=== PATIENT | male | born 1995 | race Caucasian/White ===

== ENCOUNTER 2024-08-21 10:59 | Emergency (ER) | payer BC, SELFPAY ==
[2024-08-21] VITALS (7 sets, daily range): BP systolic 132–183; BP diastolic 80–105; PULSE 87–125; RESP 15–19; TEMP 36.4–36.9; O2SAT 96–100
--- NOTE | ~2024-08-21 | XR_ITS ---
EXAMINATION: XR chest 1V portable DATE: 08/21/2024 12:59 INDICATION: Anxiety TECHNIQUE: frontal view of the chest was obtained. COMPARISON: None FINDINGS: The lungs are clear with no focal airspace opacities, pulmonary edema, pleural effusion or pneumothor ax. The cardiomediastinal silhouette is normal. Visualized bones and soft tissues are unremarkable. IMPRESSION: 1. No acute cardiopulmonary disease. Reviewed, dictated and finalized at location A.
--- NOTE | 2024-08-21 12:20 | ECG_ITS ---
Test Date: 2024-08-21 12:36:34 Measurements Intervals [place] Rate: 98 P: 66 MD: 132 QRS: 56 QRSD: 101 T: -1 QT: 342 QTc: 437 Interpretive Statements SINUS RHYTHM WITH SINUS ARRHYTHMIA BORDERLINE ST-T WAVE ABNORMALITY- INFERIOR LEADS BASELINE ARTIFACT- I, II, AVR, V1 BORDERLINE ECG No previous ECG available for comparison Electronically Signed On 08-21-2024 12:50:56 CDT by Jasper Zelaya D.O.
--- NOTE | 2024-08-21 12:20 | ED_ITS ---
HPI - Psych General Chief Complaint: Psychiatric Symptoms Stated Complaint: multiple complaints Time Seen by Provider: 08/21/24 12:11 Source: patient Mode of arrival: ambulatory Limitations: no limitations History of Present Illness HPI Narrative: 29 years old white male drove himself to the emergency room complaining of noticing blood in the urine for the last 2 weeks. History of hematuria for years, patient reports some left-sided neck tenderness like throbbing pain only when he tried to go sleep. Patient also notice some spot at the left forearm slightly tender, he suspects pink possible fracture although he does not have any recent trauma. Patient is telling me that he was suicidal thought last night but no specific plan. Used to be on psych medications for years, has been of it since the COVID pandemic. Currently patient does not take any medicine at home. He denies any homicidal ideation. Related Data Allergies Allergy/AdvReac Type Severity Reaction Status Date / Time No Known Allergies Allergy Verified 08/21/24 11:22 Review of Systems 2 Review of Systems: All systems reviewed & are unremarkable except as noted in HPI and below Exam 2 Narrative: General appearance: Well-developed, well-nourished Skin: Normal color Head: Normocephalic, nontraumatic Eyes: Clear conjunctiva ENT: Oropharynx normal, ears normal, nose normal Neck: Supple, nontender Chest and respiratory: Airway patent, no respiratory distress, no accessory muscle use Heart: Regular rate/rhythm Abdomen: Soft, nontender, no organomegaly, quiet bowel sounds Vascular: Normal peripheral pulses, normal capillary refill. Musculoskeletal: Normal range of motion, nontender back Neurologic: Alert and oriented ?3, PROOF READER is normal as tested, no gross motor deficit Course Vital Signs Vital signs: Vital Signs Temperature 36.6 C 08/21/24 11:19 Pulse Rate 118 H 08/21/24 11:19 Respiratory Rate 16 08/21/24 11:19 Blood Pressure 180/105 H 08/21/24 11:19 Pulse Oximetry 97 08/21/24 11:19 Oxygen Delivery Room Air 08/21/24 11:19 Temperature 36.4 C 08/21/24 19:41 Pulse Rate 96 08/21/24 19:41 Respiratory Rate 18 08/21/24 19:41 Blood Pressure 175/92 H 08/21/24 19:41 Pulse Oximetry 100 08/21/24 19:41 Oxygen Delivery Room Air 08/21/24 11:19 MDM - Psych MDM Narrative Medical decision making narrative: Patient presents with multiple symptoms not related to each other and suicidal thought Vital signs showing blood pressure 180/105, heart rate 118 otherwise within normal limit Physical examination is unremarkable except for odd personality patient Differential diagnosis include major depression with suicidal ideation, urinary tract infection, electrolyte imbalance, dehydration, thyroid abnormality Blood workup today includes CBC, CMP, TSH showed AST 283, ALT 244, ALKALINE PHOSPHATASE 182 PATIENT IS ALCOHOLIC Urinalysis showed EVIDENCE OF INFECTION Urine drug screen showed NEGATIVE FOR DRUGS Chest x-ray showed NO ACUTE ABNORMALITY EKG showed NORMAL SINUS RHYTHM DIAGNOSIS MAJOR DEPRESSION WITH SUICIDAL IDEATION, URINARY TRACT INFECTION, UNCONTROLLED HYPERTENSION, ALCOHOLIC HEPATITIS PATIENT WAS SIGNED OUT TO DR. TRENT WAITING FOR PSYCH EVAL Differential Diagnosis Differential diagnosis: Likely other (As above) Medical Records Attestation: I reviewed the patient's medical records. Lab Data Attestation: I reviewed the patient's lab results. 08/21/24 12:15 08/21/24 12:15 Labs: Lab Results 08/21/24 08/21/24 08/21/24 Range/Units 12:14 12:15 12:31 WBC 7.8 (4.5-10.0) K/mm3 RBC 4.42 L (4.6-6.20) M/mm3 Hgb 15.6 (14.0-18.0) g/dL Hct 45.5 (42.0-52.0) % MCV 102.9 H (80-100) fl MCH 35.3 H (26-34) pg MCHC 34.3 (32-36) g/dl RDW 14.1 (11.5-14.5) % Plt Count 195 (150-375) k/mm3 MPV 10.7 H (7.4-10.4) fl Immature Gran % (Auto) 0.6 H (0-0.5) % Neut % (Auto) 77.0 H (45.5-73.1) % Lymph % (Auto) 12.1 L (18.3-44.2) % Rush % (Auto) 9.0 H (2.6-8.5) % Eos % (Auto) 0.3 (0-4.4) % Baso % (Auto) 1.0 (0.2-1.2) % Lymph # (Auto) 0.94 (0.9-3.2) K/mm3 Rush # (Auto) 0.7 H (0.1-0.6) K/mm3 Eos # (Auto) 0.0 (0-0.3) K/mm3 Baso # (Auto) 0.1 (0.0-0.1) K/mm3 Abs Immat Gran (auto) 0.05 H (0.00-0.031) K/mm3 Absolute Neuts (auto) 6.0 (1.3-6.7) K/mm3 Absolute Nucleated RBC 0.000 (0.0-0.012) K/mm3 Nucleated RBC % 0.0 (0.0-0.2) % Sodium 142 (137-145) mmol/L Potassium 4.1 (3.4-5.0) mmol/L Chloride 102 (98-107) mmol/L Carbon Dioxide 24 (22-30) mmol/L Anion Gap 16 H (4-12) mmol/L BUN 7 L (9-20) mg/dL Creatinine 0.77 (0.7-1.3) mg/dL Estim Creat Clear Calc 156 ml/min Estimated GFR > 60 (59 - ) Glucose 93 (65-110) mg/dL Calcium 9.0 (8.4-10.2) mg/dL Magnesium 1.6 (1.6-2.3) mg/dL Total Bilirubin 1.0 (0.2-1.3) mg/dL AST 283 H (17-59) U/L ALT 244 H (6-50) U/L Alkaline Phosphatase 182 H (38-126) U/L Total Protein 8.0 (6.3-8.2) g/dL Albumin 4.7 (3.5-5.1) g/dL Lipase 28 (23-300) U/L TSH (Reflex) 2.060 (0.465-4.68) uIU/mL Urine Color Dark yellow (Yellow) Urine Appearance Cloudy H (Clear) Urine pH 5.5 (5.0-9.0) Ur Specific [place] 1.019 (1.001-1.035) Urine Protein 1+ H (Negative) mg/dL Urine Glucose (UA) Negative (Negative) mg/dL Urine Ketones 1+ H (Negative) mg/dL Ur Blood (Man) Negative (Negative) Urine Nitrate Negative (Negative) Urine Bilirubin Negative (Negative) Urine Urobilinogen 1.0 (<2.0) mg/dL Leukocyte Esterase Rfl 2+ H (Negative) LESLIE/UL Urine RBC 0-2 (0-2) /hpf Urine WBC >100 H (0-3) /hpf Ur Squamous Epith Cells Occasional (Few) /hpf Urine Bacteria Rare /hpf Urine Casts 3-5 Urine Opiates Screen Negative (Negative) Urine Methadone Screen Negative (Negative) Ur Barbiturates Screen Negative (Negative) Ur Phencyclidine Scrn Negative (Negative) Ur Amphetamine Screen Negative (Negative) U Benzodiazepines Scrn Negative (Negative) Urine Cocaine Screen Negative (Negative) U Cannabinoids Screen Negative (Negative) Ethyl Alcohol 61 (<10) mg/dL SARS-CoV-2 RNA (RT-PCR) Negative (Negative) Imaging Data Radiologist's impression: Impressions Chest X-Ray 08/21/24 13:02 IMPRESSION: 1. No acute cardiopulmonary disease. ECG Data EKG #1: Attestation: I personally reviewed and interpreted this ECG as follows: ECG completion date: 08/21/24 Interpretation: NORMAL SINUS RHYTHM WITH SINUS ARRHYTHMIA AT 98 BEATS PER MINUTE, BORDERLINE ST T-WAVE ABNORMALITY, BORDERLINE EKG, NO PREVIOUS EKG AVAILABLE FOR COMPARISON Critical Care Time Critical Care Time Critical Care Time: No Discharge Plan Discharge Clinical Impression: Depression with suicidal ideation, Urinary tract infection, Hypertension, Alcoholic hepatitis Patient Disposition: Psychiatric Hosp Condition: Stable Patient Language: [place] Citizen Follow-up/Referrals: PHYSICIAN,ASSEMBLER PRODUCTION LINE [Non-Staff] -
[2024-08-21 12:30] LABS: Basophils Absolute Auto 0.1 K/mm3 (0.0-0.1); Eosinophils Percent Auto 0.3 % (0-4.4); Hematocrit 45.5 % (42.0-52.0); Hemoglobin 15.6 g/dL (14.0-18.0); Immature Granulocyte Absolute 0.05 K/mm3 (0.00-0.031); Immature Granulocyte Percent A 0.6 % (0-0.5); Lymphocytes Absolute Auto 0.94 K/mm3 (0.9-3.2); Lymphocytes Percent Auto 12.1 % (18.3-44.2); Mean Corpuscular HGB Conc 34.3 g/dl (32-36); Mean Corpuscular Hemoglobin 35.3 pg (26-34); Mean Corpuscular Volume 102.9 fl (80-100); Mean Platelet Volume 10.7 fl (7.4-10.4); Monocytes Absolute Auto 0.7 K/mm3 (0.1-0.6); Platelet Count Result 195 k/mm3 (150-375); Red Blood Count 4.42 M/mm3 (4.6-6.20); Red Cell Distribution Width 14.1 % (11.5-14.5); White Blood Count 7.8 K/mm3 (4.5-10.0)
[2024-08-21 12:40] LABS: Alanine Aminotransferase 244 U/L (6-50); Albumin Level 4.7 g/dL (3.5-5.1); Alkaline Phosphatase 182 U/L (38-126); Anion Gap 16 mmol/L (4-12); Aspartate Amino Transferase 283 U/L (17-59); Blood Urea Nitrogen 7 mg/dL (9-20); Carbon Dioxide 24 mmol/L (22-30); Chloride 102 mmol/L (98-107); Estimated CRCL calculation 156 ml/min; Estimated Glomerular Filt Rate > 60; Glucose 93 mg/dL (65-110); Potassium 4.1 mmol/L (3.4-5.0); Sodium 142 mmol/L (137-145)
[2024-08-21 12:41] LABS: Ethanol 61 mg/dL (<10)
[2024-08-21 12:44] LABS: Add Urine Microscopic? YES; Appearance Urine Cloudy (Clear); Bacteria Urine Rare /hpf; Bilirubin Urine Negative (Negative); Blood Urine Negative (Negative); Color Urine Dark Yellow (Yellow); Glucose Urine UA Negative (Negative); Ketones Urine 1+ mg/dL (Negative); Leukocyte Esterase Ur 2+ LEU/UL (Negative); Nitrate Urine Negative (Negative); Protein Urine 1+ mg/dL (Negative); RBC Urine 0-2 /hpf (0-2); Specific Grav Ur 1.019 (1.001-1.035); Squamous Epithelial Cell Urine Occasional /hpf (Few); WBC Urine >100 /hpf (0-3); pH Urine 5.5 (5.0-9.0)
[2024-08-21 13:05] LABS: SARS-CoV-2 RNA PCR Negative (Negative)
[2024-08-21 13:41] LABS: Barbiturate Screen Urine Negative (Negative); Benzodiazepines Screen Urine Negative (Negative)
--- OUTSIDE RECORDS SUMMARY | 2024-08-21 13:48 | XMS_ITS | Clinical Summary ---
Author Organization [facility] Address [address] [place] [id number] Phone [email or web address] Care Team Providers Care Laryngologist Name Role Phone Luis Turner Primary Care Provider [phone] Allergies No known active allergies Medications sertraline (ZOLOFT) 50 MG tablet Take 50 mg by mouth 1 (one) time each day. Active Active Problems No known active problems Family History Medical History Relation Name Comments Depression Brother Heart disease Father's Brother Cancer Maternal Grandfather Diabetes Maternal Grandmother Arthritis Mother Depression Mother Mental illness Mother Diabetes Paternal Grandmother Relation Name Status Comments Brother Father's Brother Maternal Grandfather Maternal Grandmother Mother Paternal Grandmother Social History Tobacco Use Types Packs/Day Years Used Date Smoking Tobacco: Never Smokeless Tobacco: Never Tobacco Cessation:Counseling Given: No Alcohol Use Standard Drinks/Week Comments Yes 0 (1 standard drink = 0.6 oz pur e alcohol) Intimate Partner Violence Answer Date R ecorded Insults You Not on file 08/23/2020 Threatens You Not on file 08/23/2020 Screams at You Not on file 08/23/2020 Physically Hurt Not on file 08/23/2020 Intimate Partner Violence Score Not on file 08/23/2020 Stress Answer Date Recorded Stress in your Life Not on file 03/15/2024 Dealing with Stress 3 03/15/2024 Sex and Gender Information Value Date Recorded Sex Assigned at Not on file Legal Sex Male 9:38 AM [employer] Gender Identity Not on file Sexual Orientation Not on file Last Filed Vital Signs Vital Sign Reading Time Taken Comments Blood Pressure 132/84 04/24/2019 10:05 AM [employer] SUPER[employer] Pulse 89 04/24/2019 10:05 AM [employer]PER[employer] Temperature 36.6 C (97.9 F) 04/24/2019 10:05 AM [employer] SUPER[employer]OR Respiratory Rate 18 04/24/2019 10:05 AM [employer] SUPER[employer]OR Oxygen Saturation 98% 04/24/2019 10:05 AM [employer]PER[employer] Inhaled Oxygen Concentration - - Weight 135 kg (297 lb 4.8 oz) 04/24/2019 10:05 A M [employer] Height 167.6 cm (5' 6 ) 04/24/2019 10:05 AM [employer]PER[employer] Body Mass Index 47.99 04/24/2019 10:05 AM [employer] SUPER[employer]OR Plan of Treatment Health Maintenance Due Date Last Done Comments Dental Cleaning/Exam 1994 HIV Screening 1994 Hepatitis C Screening 1994 Annual Preventive Exam 2012 Hep B Infection Screening - Triple Screen 2012 Hepatitis B Immunization (1 of 3 - 19+ 3-dose series) 2013 Tetanus Diphtheria and Pertu ssis Immunization (1 - Tdap) 2013 Covid-19 Immunization (1 - 2 25 season) 2024 Influenza Immunization (Se[place] on Ended) 2025 HIB Immunization Aged Out No longer e ligible based on patient's age to complete this topic HPV Immunization Aged Out No longer e ligible based on patient's age to complete this topic Hepatitis A Immunization Aged Out No longer eligible based on patient's age to complete this topic Pneumococcal: Ped (0 to 5 Yr s) and At-Risk Member (6 to 64 Yrs) Aged Out No longer e ligible based on patient's age to complete this topic Polio Immunization Aged Out No longer eligible based on patient's age to complete this topic Varicella Immunization Aged Out No lo nger eligible based on patient's age to complete this topic Insurance [facility] [place] NO COPAY NB Care Teams Laryngologist Relationship Specialty Start Date End Date Luis Turner [address] [place] [address] PCP - General Internal Medicine 04/24/19
--- OUTSIDE RECORDS SUMMARY | 2024-08-21 13:49 | XMS_ITS | Clinical Summary ---
Author Organization [facility] Address [address] [place] [id number] Care Team Providers Care Currency Counter Name Role Phone Layla Casas MD Primary Care Provider [phone] Social History Tobacco Use Types Packs/Day Years Used Date Smoking Tobacco: Never Assessed Sex and Gender Information Value Date Recorded Sex Assigned at Not on file Legal Sex Male 10:24 AM CDT Gender Identity Not on file Sexual Orientation Not on file Plan of Treatment Upcoming Encounters Date Type Department Care Team (Late st Contact Info) Description 08/28/2024 2:00 PM CDT Office Visit [facility] Family & Internal Medicine [address] [id number] [place] [id number] [place] [id number] Insurance [facility] Care Teams Currency Counter Relationship Specialty [place] [address] [place] [address] PCP - General INTERNAL MEDICINE 08/21/24
--- NOTE | 2024-08-21 14:23 | PC.NURSE ---
Ordered chocolate milk for pt, per pts request.
--- NOTE | 2024-08-21 14:34 | PC.NURSE ---
Spoke with Jazmyn in the lab about pts UDS. Jazmyn states the machine was throwing error codes and it had to be re-ran.
[2024-08-21 14:43] LABS: Amphetamine Screen Urine Negative (Negative); Cannabinoid Screen Urine Negative (Negative); Cocaine Screen Urine Negative (Negative); Methadone Screen Urine Negative (Negative); Opiate Screen Urine Negative (Negative); Phencyclidine Screen Urine Negative (Negative)
--- NOTE | 2024-08-21 17:40 | PC.NURSE ---
1555 spoke with [employer] and refaxed paperwork, who talked to pt for intake questions [phone] spoke with [employer] who states they now need a magnesium level for intake. Mag level was added on and labs will be refaxed once resulted.
[2024-08-21 17:42] LABS: Magnesium 1.6 mg/dL (1.6-2.3)
--- NOTE | 2024-08-21 17:46 | PC.NURSE ---
Dinner tray ordered for pt.
[2024-08-21 18:10] LABS: Lipase 28 U/L (23-300)
[2024-08-21] MEDS: cloNIDine HCL 0.1 MG TABLET PO (18:10)
[2024-08-21] MEDS: LORazepam INJ (*CRX) 2 MG/ML VIAL IV PUSH (22:39)
[2024-08-22] VITALS (9 sets, daily range): BP systolic 123–151; BP diastolic 74–101; PULSE 64–98; RESP 15–20; TEMP 36.6; O2SAT 96–100
--- NOTE | 2024-08-22 00:48 | PC.NURSE ---
This RN spoke with Desire the accepting provider at [place].
--- NOTE | 2024-08-22 07:45 | PC.NURSE ---
Kandace, with [facility], was contacted about bed number/nurse report. She states pt will receive bed upon arrival to facility. ED bander hand reports transportation at approx 0930 today.
== END 2024-08-22 09:30 ==
PROVIDERS: Physician Assistant; Emergency Provider Emergency Medicine
DX: N39.0 Urinary tract infection, site not specified (principal); F32.A Depression, unspecified; R45.851 Suicidal ideations; I10 Essential (primary) hypertension; K70.10 Alcoholic hepatitis without ascites; Z11.52 Encounter for screening for COVID-19; R94.31 Abnormal electrocardiogram [ECG] [EKG]
CPT/HCPCS: 36415; 71045; 80053; 80307; 81001; 82077; 83690; 83735; 84443; 85025; 87086; 87635; 93005; 96365; 96375; 99285; A9270; J0696; J2060

== ENCOUNTER 2025-03-16 08:26 | Outpatient (CLI) | payer BC, SELFPAY ==
--- NOTE | ~2025-03-16 | US_ITS ---
EXAMINATION: US abdomen limited DATE: 03/16/2025 08:37 INDICATION: Abnormal test TECHNIQUE: Multiple grayscale and Doppler ultrasound images of the abdomen were obtained. COMPARISON: None FINDINGS: The liver is borderline enlarged measuring up to 19 cm. Echotexture of the liver appears mildly increased throughout. No discrete liver lesions masses or biliary ductal dilatation seen. Gallbladder appears within normal limits. Common bile duct: 4.0 mm. No free fluid seen. The pancreas is poorly visualized. The right kidney is not well seen. IMPRESSION: Limited examination demonstrating fatty liver changes and possible mild hepatomegaly. Reviewed, dictated and finalized at location A. [employer] CLAIMS SPECIALIST
== END 2025-03-16 08:27 | disposition home or self-care (01) ==
LOC: GOSHIMG 08:26
PROVIDERS: PCP Physician Assistant; Visit Provider Physician Assistant
DX: R74.8 Abnormal levels of other serum enzymes (principal)
CPT/HCPCS: 76705